=== PATIENT | male | born 1950 | race Caucasian/White ===

== ENCOUNTER → 2016-09-12 | Outpatient (CLI) | payer MEDICARE | LOC: LAB.O 10:23 | PROVIDERS: ATTEND Nurse Practitioner Family | DX: I10 Essential (primary) hypertension (principal) ==

== ENCOUNTER → 2017-11-07 | Outpatient (CLI) | payer MEDICARE ==
--- NOTE | 2017-11-07 16:13 | US ---
EXAM DESCRIPTION: Renal CLINICAL HISTORY: 67 years Male, chronic kidney disease with right and left lower quadrant pain. COMPARISON: None. TECHNIQUE: Limited transverse and longitudinal grayscale and color ultrasound imaging of both kidneys. FINDINGS: Right kidney: The right kidney measures 8.7 x 5.1 x 4.7 cm. Mildly increased cortical echogenicity noted. No evidence of hydronephrosis or perinephric fluid collections. Left kidney: Left kidney measures 9.5 x 5.3 x 4.0 cm. Mildly increased cortical echogenicity noted. No evidence of hydronephrosis or perinephric fluid collections. IMPRESSION: 1. Mildly increased cortical echogenicity of both kidneys could be related to medical renal disease. No hydronephrosis. Electronically signed by: Edil Chaves MD 11/07/2017 4:12 PM CDT
== END ==
LOC: RAD 12:32
PROVIDERS: ATTEND Internal Medicine Nephrology
DX: N18.4 Chronic kidney disease, stage 4 (severe) (principal)